=== PATIENT | male | born 1975 | race Caucasian/White ===

== ENCOUNTER 2021-09-20 03:31 | Emergency (ER) | payer SELFPAY ==
[~2021-09-20] VITALS: Ht 165.1 cm; Wt 89.8 kg
--- NOTE | 2021-09-20 03:31 | NUR ---
PT RADHA POTTRE, TAKEN TO ER CHAIR A
[2021-09-20 03:36] VITALS: BP 138/76
[2021-09-20 03:46] VITALS: BP 138/76
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
--- NOTE | 2021-09-20 03:50 | NUR ---
PT TAKEN TO XRAY
--- NOTE | 2021-09-20 04:01 | NUR ---
PATIENT BIB [facility] DEPT. PATIENT EXAMINED BY DR. PARHAM. PATIENT MEDICALLY CLEARED AND RELEASED IN CUSTODY IN STABLE CONDITION. ORIGINAL PRE-BOOK FORM GIVEN TO OFFICER ANIRUDH, #[id number].
== END 2021-09-20 04:01 ==
LOC: MED 03:31
DX: S00.411A Abrasion of right ear, initial encounter (principal); Z98.890 Other specified postprocedural states; V49.9XXA Car occupant (driver) (passenger) injured in unspecified traffic accident, initial encounter; Y93.89 Activity, other specified; Y92.828 Other wilderness area as the place of occurrence of the external cause; Y99.8 Other external cause status
CPT/HCPCS: 71045; 99283